=== PATIENT | male | born 1985 | race Caucasian/White ===

== ENCOUNTER 2016-07-17 01:42 | Observation (INO) | payer BC ==
--- NOTE | ~2016-07-17 | CR2 ---
[facility]. [facility] A Service of [facility] & [facility] RADIOLOGY TEXT RESULTS PATIENT: MAXIM NGUYỄN LOCATION: [facility] 215-01 : [birth year] UNIT #: [id number] AGE: [address]: Josue Billings MD SEX: M ORDER DR: [id number] [place] [id number] I MR#: [id number] Acc #: [id number] NAME: MAXIM NGUYỄN : 1985 SEX: M STUDY DATE/TIME: 07/17/2016 2:03 UNIT: SEDOF ROOM: [id number] STUDY DESCRIPTION: CR Abdomen Acute Series Attending Physician: Josue Billings Jr., M.D. Ordering Physician: Kierra Og M.D. Primary Care Physician: No Primary Care Physician MEDICAL IMAGING REPORT This report is preliminary unless electronic signature is present. EXAM Acute abdominal series INDICATIONS Epigastric pain beginning today. FINDINGS A PA view of the chest and a flat upright view of obtained. The heart size and vascularity are normal. Lungs are clear. There is no free air. The bowel gas pattern is normal. The bones are unremarkable. IMPRESSION Normal acute abdomen series. Dictated by... Peter Cortés M.D. THIS IS AN ELECTRONICALLY VERIFIED REPORT Peter Cortés M.D. at 07/18/2016 12:28 AM GINO/coleen TD: 07/17/2016 22:38 JOB #: [id number] MEDICAL IMAGING REPORT Page 1 of 1
--- NOTE | ~2016-07-17 | OR ---
Unit #: [id number] #: [id number] Patient: MAXIM NGUYỄN [id number] [address] [place], [place] [address] [id number] I MR#: [id number] NAME: MAXIM NGUYỄN ROOM: [facility] Date of Procedure: 07/17/2016 Admission Date: 07/17/2016 Surgeon: Josue Billings Jr., M.D. : 1985 Attending Physician: Josue Billings Jr., M.D. OPERATIVE REPORT INDICATIONS FOR PROCEDURE The patient is a 31-year-old white male, who presented to the emergency room complaining of periumbilical pain now that is radiated to the right lower quadrant. CT revealed evidence of acute nonperforated appendicitis. White blood cell count was elevated at 13,500. On examination, he has localized tenderness in the right lower quadrant. It is felt he has acute nonperforated appendicitis. He is brought to the operating room at this time for laparoscopic appendectomy possible open. The patient understands the procedure including the risks, including that of intra-abdominal organ injury, abscess formation, bleeding, and staple line leaks, and consents. PREOPERATIVE DIAGNOSIS Acute nonperforated appendicitis. POSTOPERATIVE DIAGNOSIS Acute nonperforated appendicitis, noting suppurative appendicitis. ANESTHESIA General with endotracheal intubation and 0.5% Marcaine with epinephrine locally. PROCEDURE PERFORMED Laparoscopic appendectomy. DESCRIPTION OF PROCEDURE The patient was positioned in supine position. After being anesthetized and intubated, he was prepped and draped in routine fashion for laparoscopic appendectomy. A small infraumbilical incision was made approximately a cm in length. This was carried down to the fascia. The fascia in the umbilicus was lifted with a towel clip, and a Veress needle introduced into the abdomen. The abdomen was then inflated with CO2 gas. A 5-mm port was introduced in the abdomen followed by the camera. There was no evidence of any injury related to introduction of the port or the Veress needle. Additional 0.5 cm incision was made alf between the umbilicus and suprapubic area and a 5-mm port placed and a 1.5 cm incision was made to the right of the upper midline and a 12 mm port placed. The cecum was mobilized. There was obvious suppurative appendicitis without evidence of any perforation. The base of the appendix appeared clear of any inflammation. There was a window created at the base and using the linear 3.5 mm mayank, the base was stapled and transected and using a vascular load, the mesoappendix was stapled and transected. The appendix was placed in EndoCatch bag and brought out through the larger port site. Unit #: [id number] #: [id number] Patient: WHITE,MAXIM APOLLO The port was replaced and the right lower quadrant checked. One sponge was packed in the abdomen all the way down to the pelvic area and brought back out. There was no evidence of any active bleeding. At this point, after the patient was observed for more than 5 minutes for bleeding and none was noted, the CO2 was expressed from the abdomen. The ports were removed. The fascia in the larger port site was approximated with the neoClose technique prior to removal. There was no evidence of any bleeding from the port sites. The port sites were injected with 0.5% Marcaine with epinephrine locally. The wounds were irrigated and after hemostasis was achieved with Bovie cautery, skin edges were approximated with stainless-steel skin clips and skin stapling device. Sterile dressings were applied externally. Estimated blood loss less than 50 mL. The patient received less than 1000 to 1500 mL crystalloid solution during the procedure. Sponges and instruments counts were correct x3. No drains used. No complications. The patient was taken to the recovery room with stable vital signs in satisfactory condition. Dictated by... Josue Billings Jr., MAmado PEARL/ventura TD: 07/18/2016 02:32 JOB #: [id number] OPERATIVE REPORT Page 1 of 1 X Jsoue Billings MD X PROCEDURE OPERATIVE NOTE
--- NOTE | ~2016-07-17 | HP ---
Unit #: [id number] #: [id number] Patient: MAXIM NGUYỄN [id number] [address] [place], [place] [address] [id number] I MR#: [id number] NAME: MAXIM NGUYỄN ROOM: 55 Age: 31 Sex: M Admission Date: 07/17/2016 : 1985 Attending Physician: Josue Billings Jr., M.D. Primary Care Physician: Primary Care Physician No HISTORY AND PHYSICAL CHIEF COMPLAINT Right lower quadrant abdominal pain. HISTORY OF PRESENT ILLNESS The patient is a 31-year-old white male who was in normal good health up until yesterday when he developed some periumbilical pain now that has radiated to the right lower quadrant. He had a similar episode approximately a month ago but toughed it out without going to a doctor and it apparently resolved on its own. This time, it has become worse and worse and he presented to the emergency room with his complaint. He has had no significant medical problems or issues recently. PAST MEDICAL HISTORY/SERIOUS ILLNESSES None. PAST SURGICAL HISTORY None in the past. HOME MEDICATIONS None chronically. ALLERGIES None known. TRANSFUSIONS None in the past. SOCIAL HISTORY The patient is and lives with his family. He has normal good appetite. No recent weight change. Nonsmoker, nondrinker. IMMUNIZATIONS Up to date. FAMILY HISTORY Noncontributory. REVIEW OF SYSTEMS A 12-system review has been performed which is unremarkable except as noted in history of present illness. PHYSICAL EXAMINATION VITAL SIGNS: Normal. Temperature 99.6, pulse earlier was 111, now is down to 90. Unit #: [id number] #: [id number] Patient: MAXIM NGUYỄN GENERAL: The patient is a well-developed, muscular 31-year-old white male in no acute distress. HEENT: Unremarkable. NECK: Supple. CHEST: Equal bilateral expansion with bilateral equal breath sounds. LUNGS: Clear bilaterally. HEART: Regular rhythm without murmurs, gallops. No evidence of cardiomegaly clinically. ABDOMEN: Soft, moderately tender in the right lower quadrant with some guarding without rebound. There is some fullness in the area. No mass or organomegaly. No gross abdominal distention. EXTREMITIES: Full range of motion without limitation. There is no evidence of peripheral edema. BACK: No CVA tenderness. NEUROLOGIC: Grossly intact. DIAGNOSTIC STUDIES IMAGING: Patient on CT scan has evidence of acute appendicitis and by history and physical examination this would be his diagnosis. PLAN Diagnostic laparoscopy, laparoscopic appendectomy, possible open. The patient understands the procedure including the risks including that of staple line leaks, bleeding, infection, abscess formation and intraabdominal organ injury and he consents. Dictated by Josue Billings Jr., MCharles. DAE/jacinda TD: 07/17/2016 14:13 JOB #: [id number] HISTORY AND PHYSICAL Page 1 of 1 X Josue Billings MD X HISTORY AND PHYSICAL
--- NOTE | ~2016-07-17 | CT2 ---
[facility] A Service [facility] RADIOLOGY TEXT RESULTS PATIENT: MAXIM NGUYỄN LOCATION: [facility] 215-01 : [birth year] UNIT #: [id number] AGE: [address]: Josue Billings MD SEX: M ORDER DR: [id number] [place] [id number] I MR#: [id number] Acc #: [id number] NAME: MAXIM NGUYỄN : 1985 SEX: M STUDY DATE/TIME: 07/17/2016 4:06 UNIT: SEDOF ROOM: [id number] STUDY DESCRIPTION: CT Abd and Pelv W Cont Attending Physician: Josue Billings Jr., M.D. Ordering Physician: Kierra Og M.D. Primary Care Physician: No Primary Care Physician MEDICAL IMAGING REPORT This report is preliminary unless electronic signature is present. EXAM CT abdomen and pelvis with contrast INDICATIONS Epigastric pain and fever that started earlier today. COMPARISON STUDIES There is no comparison. TECHNIQUE This CT exam was performed with one or more of the following radiation dose reduction techniques: automatic exposure control, adjustment of mA and/or kV according to patient size, and iterative reconstruction. FINDINGS The patient was given 100 mL of Isovue 370, and axial 5 mm images were obtained through the abdomen and pelvis. FINDINGS Lung bases are clear. The liver, gallbladder, spleen, pancreas, adrenal glands and kidneys are normal in appearance. The aorta is normal in size. The appendix extends medially from the cecum and it is slightly thickened measuring close to a centimeter in thickness with minimal surrounding inflammation. The tip of the appendix lies medial to the external iliac artery. The rest the bowel is normal. The bladder and prostate gland are normal. The bones are unremarkable. The wall the appendix is enhancing IMPRESSION Findings consistent with early acute appendicitis. The patient has a long appendix that extends inferiorly and medially from the cecum with the tip lying medial to the distal common iliac artery and external iliac artery. The appendix is slightly thickened and shows wall enhancement and minimal [facility] A Service [facility] RADIOLOGY TEXT RESULTS PATIENT: MAXIM NGUYỄN LOCATION: [facility] 215- : [birth year] UNIT #: [id number] AGE: [address]: Josue Billings MD SEX: M ORDER DR: surrounding inflammation. Dictated by... Peter Cortés M.D. THIS IS AN ELECTRONICALLY VERIFIED REPORT Peter Cortés M.D. at 07/18/2016 12:29 AM GINO/coleen TD: 07/17/2016 23:25 JOB #: [id number] MEDICAL IMAGING REPORT Page 1 of 1
[~2016-07-17 01:42] MED LIST: CLARITIN10 M3 PO
[2016-07-17 01:59] LABS: BASOPHIL% 0.3 % (0-2.5); EOSINOPHIL# 0.1 X10e3 (0-0.7); EOSINOPHIL% 0.4 % (0.0-7.0); HEMATOCRIT 44.5 % (38.0-50.0); HEMOGLOBIN 15.3 gm/dL (13.0-16.0); LYMPHOCYTE# 1.3 X10e3 (1.0-3.5); MEAN CELL VOLUME 88.8 FL (83-96); MEAN CORPUSCULAR HEMOGLOBIN 30.5 PG (28-34); MEAN CORPUSCULAR HGB CONC 34.4 g/dL (30-36); MEAN PLATELET VOLUME 6.4 FL (6.5-11.5); MONOCYTE# 1.3 X10e3 (0-1.0); MONOCYTE% 9.7 % (3.0-12.0); NEUTROPHIL# 10.7 X10e3 (1.5-7.1); NEUTROPHIL% 79.6 % (40-75); PLATELET COUNT 296 X10e3 (140-420); RED BLOOD COUNT 5.02 X10e (3.90-5.60); RED CELL DISTRIBUTION WIDTH 13.3 % (11.0-15.5); WHITE BLOOD COUNT 13.4 X10e3 (4.0-10.5)
[2016-07-17 02:00] LABS: DIFF IND NO
[2016-07-17 02:17] LABS: ALBUMIN SERUM 4.6 g/dL (3.5-5.0); BILIRUBIN, DIRECT 0.1 mg/dL (0.0-0.2); BILIRUBIN,INDIRECT 0.5 mg/dL (0.0-0.9); BILIRUBIN,TOTAL 0.6 mg/dL (0.2-2.0); CALCIUM SERUM 9.5 mg/dL (8.4-10.2); GLOM FILT RATE Estimated 101.3 mL/min (>60); POTASSIUM 3.7 mmol/L (3.5-5.1); PROTEIN TOTAL SERUM 7.8 g/dL (6.0-8.3)
[2016-07-17 02:31] LABS: URINE SOURCE CLEAN CATCH
[2016-07-17 02:33] LABS: URINE APPEARANCE CLEAR; URINE BILIRUBIN NEG (NEG); URINE BLOOD NEG (NEG); URINE COLOR YELLOW; URINE GLUCOSE NEG (NORM); URINE KETONE NEG (NEG); URINE LEUKOCYTE ESTERASE NEG (NEG); URINE NITRATE NEG (NEG); URINE PROTEIN NEG (NEG); URINE SPECIFIC GRAVITY 1.025 (1.003-1.035); URINE UROBILINOGEN 0.2 MG/DL (NORM)
[2016-07-17 02:34] LABS: MICRO INDICATED? NO
[2016-07-17 03:16] LABS: INFLUENZA A NEG (NEG); INFLUENZA B NEG (NEG)
[2016-07-18 05:15] LABS: HEMATOCRIT 43.2 % (38.0-50.0); HEMOGLOBIN 14.8 gm/dL (13.0-16.0); MEAN CELL VOLUME 88.8 FL (83-96); MEAN CORPUSCULAR HEMOGLOBIN 30.4 PG (28-34); MEAN CORPUSCULAR HGB CONC 34.3 g/dL (30-36); MEAN PLATELET VOLUME 6.8 FL (6.5-11.5); RED BLOOD COUNT 4.87 X10e (3.90-5.60); RED CELL DISTRIBUTION WIDTH 13.1 % (11.0-15.5); WHITE BLOOD COUNT 10.2 X10e3 (4.0-10.5)
[2016-07-18] MEDS ORDERED: HYDROCODON-ACE1 EAC5 PO (06:52)
== END 2016-07-18 07:19 | disposition home or self-care (01) | DRG 395 ==
LOC: SED 01:42 → SEDOF 04:58 → CEDOF 05:00 → C5B 08:11 → C2A 15:50
PROVIDERS: Emergency Medicine; Surgery
DX: K35.80 Unspecified acute appendicitis (principal)
CPT/HCPCS: 36415; 74022; 74177; 80048; 80076; 81003; 83690; 85025; 85027; 86677; 87804; 88304; 96361; 96365; 96374; 96375; 96376; 99285; G0378; J2250; J2270; J2405; J2543; J3010; Q9967